=== PATIENT | female | born 1955 | race Caucasian/White ===

== ENCOUNTER 2017-09-06 10:16 | Emergency (ER) | payer BC ==
[2017-09-06 12:13] VITALS: BP 154/81
--- NOTE | 2017-09-06 17:49 | ED ---
Throat Pain/Nasal Congestion - HPI Summary HPI Summary: States she woke today and the swelling in her face is worse. Patient presents to the ED with chief complaint of left maxillary and mandible pain for 4 days. She denies any history of dental infections. She was seen by her primary care on Thursday and was placed on a course of antibiotics. She believes the antibiotics was cefepime, but knows it started with a CEF. Symptoms have not improved and now she states the pain is more localized to the lower jaw. Denies any pain in the neck or into the ear. She describes it as aching, and throbbing. She contracts sinus infections frequently, but states this feels different. She denies any right maxillary or mandible pain. Fillings into the left lower molars visualized. Denies sinus congestion or chest congestion or rhinorrhea. - History of Current Complaint Chief Complaint: EDUpperRespComplaint Time Seen by Provider: 09/06/17 11:23 Hx Obtained From: Patient Onset/Duration: Gradual Onset Severity: Moderate Associated Signs And Symptoms: Positive: Sinus Discomfort. Negative: Dysphagia , Nasal Discharge - Epiglottits Risk Factors Epiglottis Risk Factors: Negative - Allergies/Home Medications Allergies/Adverse Reactions: Allergies Allergy/AdvReac Type Severity Reaction Status Date / Time Acetaminophen [From Percocet] Allergy Abdominal Verified 09/06/17 10:20 Pain Amoxicillin [From Augmentin] Allergy Vomiting Verified 09/06/17 10:20 Clavulanic Acid Allergy Vomiting Verified 09/06/17 10:20 [From Augmentin] Codeine Allergy Abdominal Verified 09/06/17 10:20 Pain Oxycodone [From Percocet] Allergy Abdominal Verified 09/06/17 10:20 Pain Propoxyphene Allergy Rash Verified 09/06/17 10:20 [From Darvocet-N] Tetracycline Allergy Rash Verified 09/06/17 10:20 PMH/Surg Hx/FS Hx/Imm Hx Previously Healthy: Yes - Surgical History Surgery Procedure, Year, and Place: GALL BLADDER SURGERY, SPINAL FUSION - Immunization History Hx Pertussis Vaccination: No Immunizations Up to Date: Yes Infectious Disease History: No Infectious Disease History: Denies: Traveled Outside the [place] in Last 30 Days - Social History Occupation: Employed Full-time Lives: With Family Alcohol Use: Occasionally Hx Substance Use: No Substance Use Type: Reports: None Hx Tobacco Use: No Smoking Status (MU): Never Smoked Tobacco Review of Systems Constitutional: Negative Negative: Fever, Chills, Fatigue, Skin Diaphoresis Positive: Dental Pain, Other - left maxillary sinus pain Cardiovascular: Negative Genitourinary: Negative Positive: no symptoms reported, see HPI Musculoskeletal: Negative Skin: Negative Psychological: Normal All Other Systems Reviewed And Are Negative: Yes Physical Exam Triage Information Reviewed: Yes Vital Signs On Initial Exam: Initial Vitals Temp Pulse Resp BP Pulse Ox 97.6 F 67 16 187/87 97 09/06/17 10:20 09/06/17 10:20 09/06/17 10:20 09/06/17 10:20 09/06/17 10:20 Vital Signs Reviewed: Yes Appearance: Positive: Well-Appearing, Well-Nourished Skin: Positive: Warm, Skin Color Reflects Adequate Perfusion Head/Face: Positive: Normal Head/Face Inspection Eyes: Positive: EOMI, KYLER, Conjunctiva Clear Dental: Positive: Other Neck: Positive: Enlarged Nodes @ - Left lower mandible and maxillary Respiratory/Lung Sounds: Positive: Breath Sounds Present Cardiovascular: Positive: Pulses are Symmetrical in both Upper and Lower Extremities - Left cervical anterior Musculoskeletal: Positive: Normal, Strength/ROM Intact Neurological: Positive: Speech Normal Psychiatric: Positive: Affect/Mood Appropriate AVPU Assessment: Alert Diagnostics - Vital Signs Vital Signs Temp Pulse Resp BP Pulse Ox 09/06/17 12:12 97.6 F 67 16 154/81 98 09/06/17 10:20 97.6 F 67 16 187/87 97 - Laboratory Lab Statement: Any lab studies that have been ordered have been reviewed, and results considered in the medical decision making process. EENT Course/Dx - Course Course Of Treatment: Course of treatment the patient is evaluated for left maxillary and mandible pain. I have considered sinusitis versus dental infection. No loculated or fluctuant fluid in the maxillary sinuses bilaterally. There is no evidence of cellulitis, no erythema or warmth to the left cheek. No swelling is noted. Denies trismus. While there is left maxillary sinus pressure, worsening pain is noted to be in the left lower mandible. No visible abscess or infection is seen. Unknown antibiotic and unsure if this would cover for dental infection. She is given clindamycin 300 mg 4 times daily 7 days. She is to follow-up with her primary care physician this week. She is given orders strict return precautions as this may be an early forming abscess into the maxillary sinus. I do not believe a CT maxillofacial is warranted at this time based on physical exam symptoms that I have mentioned above. She is okay with this plan and discharge and voices no concerns. Denies any fevers, sweats, chills to suggest more systemic infection. Vital signs are stable throughout the course of treatment. - Diagnoses Provider Diagnoses: Mandibular pain Discharge - Discharge Plan Condition: Stable Disposition: HOME Prescriptions: Clindamycin Cap(NF) [Clindamycin Cap 300 mg Cap(NF)] 300 mg PO Q6H #28 cap traMADol TAB* [Ultram*] 50 mg PO Q12H PRN #6 tab MDD 2 PRN Reason: Pain Patient Education Materials: Toothache (ED) Referrals: Mundo Salinas MD [Medical Doctor] - Tameka Teixeira MD [Primary Care Provider] - Additional Instructions: Please take the clindamycin 4 times daily for 7 days for a possible dental infection I have given you a referral to Dr. Salinas, please follow up with him You must call tomorrow morning to make an appointment As discussed, if this becomes any worse you need to return to the ED immediately Signs of worsening infection include redness swelling or worsening pain despite pain medicine If he develops fevers, sweats, chills please return to the ED immediately
== END 2017-09-06 12:15 | disposition home or self-care (01) ==
LOC: ED 10:16
DX: R68.84 Jaw pain (principal)
CPT/HCPCS: 99282

== ENCOUNTER 2019-04-26 23:46 | Emergency (ER) | payer BC ==
--- NOTE | 2019-04-27 03:49 | ED ---
Dizziness - HPI Summary HPI Summary: This pt is a 63 Y/O F presenting to [facility] with a CC of dizziness that has been present since 04/23/19. She states that when she woke up Thursday morning she had a headache that she describes as my head is going to explode. She states that she felt a little light headed and dizzy while she bent down but the symptoms soon stopped. She states that she went to work today ad had another episode. She then states that when she we getting ready for bed she states that the room kept spinning. She states that she is not on any medications for blood. She reported that she had CP that radiates into her hands. She had an earlier cath test a couple months ago that showed no acute abnormalities. She denies any fever and N/V. She also reported that her brother from a hemorrhage. She states she has a Hx of HTN and DM. 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 Negative: Nausea, Vomiting, Fever - Risk Factors CVA Risk Factor: Hypertension - Allergies/Home Medications Allergies/Adverse Reactions: Allergies Allergy/AdvReac Type Severity Reaction Status Date / Time propoxyphene Allergy Rash Verified 04/27/19 03:32 [From Darvocet-N] Tetracyclines Allergy Rash Verified 04/27/19 03:32 amoxicillin [From Augmentin] AdvReac Vomiting Verified 04/27/19 03:32 clavulanic acid AdvReac Vomiting Verified 04/27/19 03:32 [From Augmentin] codeine AdvReac Abdominal Verified 04/27/19 03:32 Pain oxycodone [From Percocet] AdvReac Abdominal Verified 04/27/19 03:32 Pain Home Medications: Home Medications Ajovy 225 mg SUBCUT MONTHLY 04/27/19 [History Confirmed 04/27/19] Imitrex 100 mg PO DAILY PRN 04/27/19 [History Confirmed 04/27/19] Meloxicam 15 mg PO DAILY 04/27/19 [History Confirmed 04/27/19] PMH/Surg Hx/FS Hx/Imm Hx Previously Healthy: Yes Endocrine/Hematology History: Reports: Hx Diabetes - Type 1 Respiratory History: Denies: Hx Asthma, Hx Bronchopulmonary Dysplasia, Hx Chronic Bronchitis, Hx Chronic Obstructive Pulmonary Disease (COPD), Hx Cystic Fibrosis, Hx Lung Cancer , Hx Pleural Effusion, Hx Pneumonia, Hx Pulmonary Edema, Hx Pulmonary Embolism, Hx Seasonal Allergies, Hx Sleep Apnea, Other Respiratory Problems/Disorders - Surgical History Surgery Procedure, Year, and Place: GALL BLADDER SURGERY, SPINAL FUSION Infectious Disease History: No Infectious Disease History: Denies: Traveled Outside the [place] in Last 30 Days - Social History Alcohol Use: Occasionally Hx Substance Use: No Substance Use Type: Reports: None Hx Tobacco Use: No Smoking Status (MU): Never Smoked Tobacco Review of Systems Positive: Chest Pain - radiates into the hand Positive: Abdominal Pain. Negative: Vomiting Positive: Arthralgia, Myalgia, Decreased ROM Positive: Headache - rated 10/10 , Weakness All Other Systems Reviewed And Are Negative: Yes Physical Exam - Summary Physical Exam Summary: Constitutional: Well-developed, Well-nourished, Alert. (-) Distressed Skin: Warm, Dry HENT: Normocephalic; Atraumatic, Eyes: Conjunctiva normal Neck: Musculoskeletal ROM normal neck. (-) JVD, (-) Stridor, (-) Nuchal rigidity , neck tenderness in her posterior aspects. . Cardio: Rhythm regular, rate normal, Heart sounds normal; Intact distal pulses; Radial pulses are 2+ and symmetric. (-) Murmur Pulmonary/Chest wall: Effort normal. (-) Respiratory distress, (-) Wheezes, (-) Rales Abd: Soft, (-) tenderness, (-) Distension, (-) Guarding, (-) Rebound Musculoskeletal: (-) Edema, No midline cervical spine tenderness Lymph: (-) Cervical adenopathy Neuro: Alert, Oriented x3, neck pain in her posterior aspects. . Psych: Mood and affect Normal Triage Information Reviewed: Yes Vital Signs On Initial Exam: Initial Vitals Temp Pulse Resp BP Pulse Ox 98.2 F 68 18 211/107 95 04/26/19 23:48 04/26/19 23:48 04/26/19 23:48 04/26/19 23:48 04/26/19 23:48 Vital Signs Reviewed: Yes Diagnostics - Vital Signs Vital Signs Temp Pulse Resp BP Pulse Ox 04/27/19 03:12 63 19 191/107 98 04/27/19 01:57 97.9 F 61 18 177/93 98 04/26/19 23:48 98.2 F 68 18 211/107 95 - Laboratory Result Diagrams: 04/27/19 04:47 04/27/19 04:47 Lab Statement: Any lab studies that have been ordered have been reviewed, and results considered in the medical decision making process. Dizzy Course/Dx - Course Course Of Treatment: This pt is a 63 Y/O F presenting to [facility] with a CC of dizziness that has been present since 04/23/19. She states that when she woke up Thursday morning she had a headache that she describes as my head is going to explode. She states that she felt a little light headed and dizzy while she bent down but the symptoms soon stopped when she was standing with her back straight. - Diagnoses Provider Diagnoses: HTN (hypertension) Discharge ED - Discharge Plan Referrals: Tameka Teixeira MD [Primary Care Provider] - - Attestation Statements Document Initiated by Scribe: Yes Documenting Scribe: Blue English Provider For Whom Scribe is Documenting (Include Credential): Joel Shin MD Scribe Attestation: Blue Law, scribed for Joel Shin MD on 04/27/19 at 0659.
[2019-04-27] MEDS ORDERED: Metoclopramide IV* 5 MG/ML 2 ML VIAL IV SLOW PU ONE (04:38)
[2019-04-27] MEDS ORDERED: Magnesium Sulfate 2 GM IV* 2 GM/50 ML BAG IVPB ONE (04:38)
[2019-04-27] MEDS ORDERED: Famotidine IV* 10 MG/ML 2 ML (20 mg) IV SLOW PU ONE (04:38)
[2019-04-27] MEDS ORDERED: diPHENhydraMINE IV* 50 MG/ML 1 ml VIAL (BENADRYL) IV ONE (04:38)
[2019-04-27 04:56] LABS: ABS Eosinophils 0.1 10^3/ul (0-0.6); ABS Lymphocytes 1.8 10^3/ul (1.0-4.8); ABS Monocytes 0.6 10^3/ul (0-0.8); ABS Neutrophils 5.3 10^3/ul (1.5-7.7); Hematocrit 42 % (35-47); Hemoglobin 14.8 g/dL (12.0-16.0); Lymphocyte % 23.3 %; Mean Corpuscular HGB Conc 35 g/dL (31-36); Mean Corpuscular Hemoglobin 31 pg (27-31); Mean Corpuscular Volume 88 fL (80-97); Mean Platelet Volume 7.5 fL (7.4-10.4); Platelet Count 270 10^3/uL (150-450); Red Blood Count 4.81 10^6 /uL (3.70-4.87); Red Cell Distribution Width 13 % (10-15); White Blood Count 7.9 10^3/uL (3.5-10.8)
[2019-04-27] MEDS ORDERED: Lactated Ringers 1000 ML Bag* 1,000 ML IV ONE (05:00)
[2019-04-27 05:07] LABS: Activated Partial Thrombo Time 33.1 seconds (26.0-38.0); INR 0.88 (0.82-1.09)
[2019-04-27 05:13] LABS: BUN/Creatinine Ratio 25.8 (8-20); Calcium 9.5 mg/dL (8.6-10.3); EGFR African American 77.3 (>60); EGFR Non-African American 63.9 (>60); Magnesium 2.2 mg/dL (1.9-2.7); Potassium 4.5 mmol/L (3.5-5.0)
[2019-04-27] MEDS ORDERED: Iodixanol* (CONTRAST) 320 MG/ML 100 ML SDV IV ONE (05:20)
[2019-04-27 06:58] LABS: Urine Appearance Clear; Urine Bilirubin Negative (Negative); Urine Blood Negative (Negative); Urine Color Yellow; Urine Glucose Negative (Negative); Urine Ketones Negative (Negative); Urine Nitrite Negative (Negative); Urine Protein Negative (Negative); Urine Specific Gravity 1.005 (1.010-1.030); Urine Urobilinogen Negative (Negative)
--- NOTE | 2019-04-27 07:12 | ED ---
Progress - Progress Note Progress Note: This patient is a sign-out at 0700 on 04/27/19 at shift change from Dr. Joel Shin to Dr. Sukhi Sher pending CTA head/neck and disposition. - Results/Orders Results/Orders: CXR: NO EVIDENCE FOR ACTIVE CARDIOPULMONARY DISEASE. Dr. Sher has reviewed this radiology report. Head CTA: 1. No acute occlusive disease, significant stenosis or aneurysm in the brain. 2. No acute occlusive disease in the neck. Dr. Sher has reviewed this radiology report. Re-Evaluation - Re-Evaluation First Eval Re-Evaluation Time: 08:27 Comment: Discussed results with patient. Patient will be discharged home with dx of migraine headache and elevated BP without hx of HTN. Patient understands and agrees with this plan. Course/Dx - Course Course Of Treatment: This patient is a sign-out at 0700 on 04/27/19 at shift change from Dr. Joel Shin to Dr. Sukhi Sher pending CTA head/neck and disposition. . This patient was signed out by Dr. Shin the previously attending. He recommended for the patient to be discharged home if the CT is negative. CTA as above and is negative for an acute pathology. The blood pressure is in the high level 180/90 however the patient will follow with the primary care physician in the next 2 days since the patient doesnt have any history of hypertension. Since the patient is feeling better, she does not have any headache she does not have any complaints the patient will be discharged home with follow-up with PCP. She was recommended to return to the emergency department if she develops any headaches, chest pain, shortness of breath or any other complaint. She understands and agrees. The patient is hemodynamically stable alert and oriented 3. - Diagnoses Provider Diagnoses: Migraine headache, Blood pressure elevated without history of HTN Discharge ED - Sign-Out/Discharge Documenting (check all that apply): Patient Departure - Discharge, Receiving Sign-Out Receiving patient FROM: Joel Shin Patient Received Moderate/Deep Sedation with Procedure: No - Discharge Plan Condition: Stable Disposition: HOME Patient Education Materials: Migraine Headache (ED), Hypertension (ED) Referrals: Tameka Teixeira MD [Primary Care Provider] - 2 Days Additional Instructions: FOLLOW UP WITH YOUR PRIMARY CARE PROVIDER WITHIN ONE WEEK. RETURN TO THE ED FOR ANY WORSENING OR NEW SYMPTOMS. - Attestation Statements Document Initiated by Scribe: Yes Documenting Scribe: Ramon Tapia Provider For Whom Scribe is Documenting (Include Credential): Sukhi Sher MD Scribe Attestation: I, Ramon Tapia, scribed for Sukhi Sher MD on 04/27/19 at 1340. Status of Scribe Document: Ready
[2019-04-27 08:56] VITALS: BP 153/92
== END 2019-04-27 08:56 | disposition home or self-care (01) ==
LOC: ED 23:46
DX: G43.909 Migraine, unspecified, not intractable, without status migrainosus (principal); R03.0 Elevated blood-pressure reading, without diagnosis of hypertension; E10.9 Type 1 diabetes mellitus without complications; R06.02 Shortness of breath; R42 Dizziness and giddiness
CPT/HCPCS: 36415; 70450; 70496; 70498; 71046; 80048; 81003; 83735; 84484; 85025; 85610; 85730; 93005; 96365; 96366; 96375; 99284; J1200; J2765; J3475

== ENCOUNTER 2019-05-31 10:05 | Observation (INO) | payer MEDICARE, BC ==
[2019-05-31 10:40] LABS: ABS Eosinophils 0.1 10^3/ul (0-0.6); ABS Lymphocytes 1.6 10^3/ul (1.0-4.8); ABS Monocytes 0.4 10^3/ul (0-0.8); ABS Neutrophils 3.6 10^3/ul (1.5-7.7); Eosinophil % 1.2 %; Hematocrit 45 % (35-47); Hemoglobin 15.4 g/dL (12.0-16.0); Lymphocyte % 27.4 %; Mean Corpuscular HGB Conc 34 g/dL (31-36); Mean Corpuscular Hemoglobin 30 pg (27-31); Mean Corpuscular Volume 89 fL (80-97); Mean Platelet Volume 7.8 fL (7.4-10.4); Nucleated Red Blood Cells % 0.1; Platelet Count 262 10^3/uL (150-450); Red Blood Count 5.09 10^6 /uL (3.70-4.87); Red Cell Distribution Width 13 % (10-15); White Blood Count 5.7 10^3/uL (3.5-10.8)
--- NOTE | 2019-05-31 10:53 | ED ---
HPI Chest Pain - HPI Summary HPI Summary: Pt is a 64 y/o F presenting to the ED for a chief complaint of chest pain and near syncope. Pt is arriving from Dr. Bruce office after a cardiac stress test that could not be completed. Pt last had a stress test in November of this year with unremarkable findings. Pt reported chest pain and dizziness in April that has been intermittent so she was referred back to cardiology. Today in the office, she felt chest pain, diaphoresis, nausea, near syncope, and lightheadedness during the cardiac stress test. Pt also reports right-sided intermittent neck pain and occasional tinnitus that quickly resolves after initial onset, recent neg CTA in Apr. Pt denies similar symptoms when she typically receives vaccinations or injections. Pt takes 6 baby aspirin for the neck pain, did not take today. Pt has a PMHx of Takotsubos cardiomyopathy and hypercholesterolemia. Pt states she has narrowing of the cervical spine at C5- C6. Pt has a PSHx of gallbladder, , and spinal fusion. Pt has a FMHx of aneurysm in her brother. - History of Current Complaint Chief Complaint: EDChestPainROMI Time Seen by Provider: 05/31/19 10:09 Hx Obtained From: Patient Onset/Duration: Started Minutes Ago, Atraumatic, Still Present Timing: Constant, Lasting Minutes Initial Severity: Mild Current Severity: Mild Pain Intensity: 3 Pain Scale Used: 0-10 Numeric Chest Pain Location: Diffuse Chest Pain Radiates: No Aggravating Factor(s): Nothing Alleviating Factor(s): Nothing Associated Signs and Symptoms: Positive: Chest Pain, Lightheadedness, Diaphoresis, Nausea, Other: - Positive near syncope - Allergy/Home Medications Allergies/Adverse Reactions: Allergies Allergy/AdvReac Type Severity Reaction Status Date / Time propoxyphene Allergy Rash Verified 05/31/19 10:16 [From Darvocet-N] Tetracyclines Allergy Rash Verified 05/31/19 10:16 amoxicillin [From Augmentin] AdvReac Vomiting Verified 05/31/19 10:16 clavulanic acid AdvReac Vomiting Verified 05/31/19 10:16 [From Augmentin] codeine AdvReac Abdominal Verified 05/31/19 10:16 Pain oxycodone [From Percocet] AdvReac Abdominal Verified 05/31/19 10:16 Pain Home Medications: Home Medications Biotin/Calcium Carbonate [Biotin 800 Mcg Tablet] 800 mcg PO DAILY 05/31/19 [ History Confirmed 05/31/19] Fremanezumab-Vfrm [Ajovy] 225 mg SUBCUT MONTHLY 05/31/19 [History Confirmed ] Krill Oil 500 mg PO DAILY 05/31/19 [History Confirmed 05/31/19] Meloxicam(NF) [Mobic(NF)] 15 mg PO DAILY 05/31/19 [History Confirmed 05/31/19] Multivitamins/Minerals TAB* [Theragran/minerals TAB*] 1 tab PO DAILY 05/31/19 [ History Confirmed 05/31/19] PMH/Surg Hx/FS Hx/Imm Hx Previously Healthy: Yes Endocrine/Hematology History: Reports: Hx Diabetes - Type 1 Cardiovascular History: Reports: Hx Hypercholesterolemia, Other Cardiovascular Problems/Disorders - Takotsubo's cardiomyopathy Respiratory History: Denies: Hx Asthma, Hx Bronchopulmonary Dysplasia, Hx Chronic Bronchitis, Hx Chronic Obstructive Pulmonary Disease (COPD), Hx Cystic Fibrosis, Hx Lung Cancer , Hx Pleural Effusion, Hx Pneumonia, Hx Pulmonary Edema, Hx Pulmonary Embolism, Hx Seasonal Allergies, Hx Sleep Apnea, Other Respiratory Problems/Disorders Sensory History: Denies: Hx Legally Blind, Hx Deafness Opthamlomology History: Denies: Hx Legally Blind EENT History: Denies: Hx Deafness - Surgical History Surgical History: Yes Surgery Procedure, Year, and Place: GALL BLADDER SURGERY, SPINAL FUSION, C- SECTION Infectious Disease History: No Infectious Disease History: Denies: Traveled Outside the [place] in Last 30 Days - Family History Known Family History: Positive: Other - Aneurysm in brother - Social History Occupation: Unemployed Lives: With Family Alcohol Use: Occasionally Hx Substance Use: No Substance Use Type: Reports: None Hx Tobacco Use: No Smoking Status (MU): Never Smoked Tobacco Review of Systems Positive: Skin Diaphoresis Positive: Other - Positive occasional tinnitus that resolves quickly Positive: Chest Pain Positive: Nausea Positive: Myalgia - Right-sided neck pain Neurological: Other - Positive near syncope and lightheadedness All Other Systems Reviewed And Are Negative: Yes Physical Exam - Summary Physical Exam Summary: Constitutional: Well-developed, Well-nourished, Alert. (-) Distressed Skin: Warm, Dry HENT: Normocephalic; Atraumatic Eyes: Conjunctiva normal Neck: Musculoskeletal ROM normal neck. (-) JVD, (-) Stridor, (-) Nuchal rigidity Cardio: Rhythm regular, rate normal, Heart sounds normal; Intact distal pulses; Radial pulses are 2+ and symmetric. (-) Murmur Pulmonary/Chest wall: Effort normal. (-) Respiratory distress, (-) Wheezes, (-) Rales Abd: Soft, (-) tenderness, (-) Distension, (-) Guarding, (-) Rebound Musculoskeletal: (-) Edema Lymph: (-) Cervical adenopathy Neuro: Alert, Oriented x3 Psych: Mood and affect Normal Triage Information Reviewed: Yes Vital Signs On Initial Exam: Initial Vitals Temp Pulse Resp BP Pulse Ox 97.5 F 54 16 198/95 96 05/31/19 10:12 05/31/19 10:12 05/31/19 10:12 05/31/19 10:12 05/31/19 10:12 Vital Signs Reviewed: Yes Procedures - Sedation Patient Received Moderate/Deep Sedation with Procedure: No Diagnostics - Vital Signs Vital Signs Temp Pulse Resp BP Pulse Ox 05/31/19 10:12 97.5 F 54 16 198/95 96 - Laboratory Lab Results: Lab Results 05/31/19 Range/Units 10:25 WBC 5.7 (3.5-10.8) 10^3/uL RBC 5.09 H (3.70-4.87) 10^6 /uL Hgb 15.4 (12.0-16.0) g/dL Hct 45 (35-47) % MCV 89 (80-97) fL MCH 30 (27-31) pg MCHC 34 (31-36) g/dL RDW 13 (10-15) % Plt Count 262 (150-450) 10^3/uL MPV 7.8 (7.4-10.4) fL Neut % (Auto) 63.5 % Lymph % (Auto) 27.4 % [place] % (Auto) 7.0 % Eos % (Auto) 1.2 % Baso % (Auto) 0.9 % Absolute Neuts (auto) 3.6 (1.5-7.7) 10^3/ul Absolute Lymphs (auto) 1.6 (1.0-4.8) 10^3/ul Absolute Monos (auto) 0.4 (0-0.8) 10^3/ul Absolute Eos (auto) 0.1 (0-0.6) 10^3/ul Absolute Basos (auto) 0.0 (0-0.2) 10^3/ul Absolute Nucleated RBC 0.0 10^3/ul Nucleated RBC % 0.1 Result Diagrams: 05/31/19 10:25 05/31/19 10:25 Lab Statement: Any lab studies that have been ordered have been reviewed, and results considered in the medical decision making process. - Radiology Chest X-ray Radiology Interpretation Completed By: Radiologist Summary of Radiographic Findings: Chest X-ray IMPRESSION: NO ACTIVE CARDIOPULMONARY DISEASE. Reviewed by ED physician. - EKG 10:21 Cardiac Rate: Bradycardia - 55 BPM EKG Rhythm: Sinus Bradycardia ST Segment: Normal Ectopy: None Summary of EKG Findings: EKG at 10:21 reveals 55 BPM with sinus bradycardia, no STEMI, no acute changes, nml axis, nml intervals. Reviewed and interpreted by ED physician. Re-Evaluation - Re-Evaluation First Eval Re-Evaluation Time: 11:40 Comment: trop neg, plan for admit for stress. 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 Recent stress test in November, was outpatient stress test when she had onset of nausea, neck pain and lightheadedness while getting blood drawn. Neck pain ddx includes: MSK, vascular (recent neg CTA), bony (hx cervical stenosis), cardiac (check trop, EKG). Well check labs including a troponin here, EKG is sinus bradycardia. Patient hypertensive to 190s otherwise unremarkable vitals. Likely to be admitted for stress in patient. BP elevated to 190's. Took home meds, will monitor. - Diagnoses Provider Diagnoses: Near syncope, Chest pain - Provider Notifications Instructed by Provider To: Admit As Inpatient Discharge ED - Sign-Out/Discharge Documenting (check all that apply): Patient Departure - Admit - Discharge Plan Condition: Stable Disposition: ADMITTED TO [facility] Referrals: Tameka Teixeira MD [Primary Care Provider] - - Billing Disposition and Condition Condition: STABLE Disposition: Admitted to [facility] - Attestation Statements Document Initiated by Scribe: Yes Documenting Scribe: Katherine Mccormick Provider For Whom Fabrizioibe is Documenting (Include Credential): Erin Ronquillo MD Scribe Attestation: I, Katherine Mccormick, scribed for Erin Ronquillo MD on 05/31/19 at 1216. Scribe Documentation Reviewed: Yes Provider Attestation: The documentation as recorded by the Katherine blackwell accurately reflects the service I personally performed and the decisions made by me, Erin Ronquillo MD Status of Scribe Document: Viewed Consult Consult: At 11:38, I spoke with Dr. Ramirez who agrees [place] [facility] [place] a [place] of [place] pain and near syncope.
--- OUTSIDE RECORDS SUMMARY | 2019-05-31 10:53 | XMS REPORT | Continuity of Care Document ---
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 Onset: 2018 other diseases of the circulatory system Social History Type Date Description Comments Sex Unknown ETOH Use Currently consumes 3-4 drinks per week alcohol Tobacco Use Start: Unknown Patient has never smoked Recreational Drug Use Denies Drug Use Smoking Status Reviewed: 05/12/19 Patient has never smoked Exercise Type/Frequency Exercises regularly walks 2-3 times per week Allergies, Adverse Reactions, Alerts Active Allergies Reaction Severity Comments Date Tetracycline 10/08/2018 Codeine 10/08/2018 Percocet 10/08/2018 Vicodin 10/08/2018 Augmentin 10/08/2018 Propoxyphene rash 10/15/2018 Medications Active Medications SIG Qnty Indications Ordering Provider Date Meloxicam 1 by mouth every Unknown 15mg Tablets day Imitrex one tablet at Unknown 100mg Tablets onset of migraine as directed Multi Complete daily Unknown Capsules Magnesium Oxide 1 by mouth every 90tabs Unknown 400mg day Tablets GNP Potassium once daily prn Unknown 99mg Tablets Megared Superior take 1 by mouth Unknown [place]-3 Krill Oil per day Extra Strength 500mg Capsules Biotin 5000 take one Unknown 5mg capsule/tablet Capsules daily by mouth HM Vitamin B-12 Ultra once daily Unknown Strength 5000mcg Tablets Dispers Vitamin C Immune once daily Unknown Health 500mg Chewtabs Ajovy inject once a Unknown 225mg/1.5ML Soln month Prefill Syringe Immunizations Description No Information Available Vital Signs Date Vital Result Comment 05/12/2019 3:49pm Height 63 inches 5'3" Weight 149.25 lb Heart Rate 98 /min BP Systolic Sitting 130 mmHg Ra< reg BP Diastolic Sitting 90 mmHg Ra< reg BP Systolic Standing 128 mmHg Ra. reg BP Diastolic Standing 90 mmHg Ra. reg BMI (Body Mass Index) 26.4 kg/m2 11/26/2018 8:54am Height 63 inches 5'3" Weight 149.25 lb with shoes Heart Rate 72 /min BP Systolic Sitting 126 mmHg Rue, regular cuff BP Diastolic Sitting 80 mmHg Rue, regular cuff BP Systolic Standing 122 mmHg Rue, regular cuff BP Diastolic Standing 84 mmHg Rue, regular cuff Respiratory Rate 16 /min BMI (Body Mass Index) 26.4 kg/m2 Results Description No Information Available Procedures Date Code Description Status 05/12/2019 22207 EKG Tracing & Interpretation Completed 11/23/2018 91541 ECHO Stress Test Incl Perf Contiuous ekg Monitoring W/Phys Completed Superv Medical Devices Description No Information Available Encounters Type Date Location Provider Dx Diagnosis Office Visit 11/26/2018 [facility] Geno Romano, R07.89 Other chest pain 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 11/26/2018 Z82.49 Family history of ischemic heart disease and Geno Romano M.D. other diseases 11/23/2018 R07.9 Chest pain, unspecified Geno Romano M.D. 11/23/2018 R94.31 Abnormal electrocardiogram [ECG] [EKG] Geno Romano M.D. Plan of Treatment 05/12/2019 - Carolina Douglass, NPI10 Essential (primary) hypertensionNew Orders: Ambulatory Blood Pressure Monitor, Ordered: 05/12/19Follow up:after testing with either myself of Dr. Romano.E78.2 Mixed [id number] Chest pain, unspecifiedNew Labs:Troponin-I (TnI), Ordered: 05/12/19New Orders:Stress Test, Exercise Nuclear, Ordered: 05/12/19Recommendations:[place] [facility] [place] today and get labs drawn. Ill call you with results. Functional Status Description No Information Available Mental Status Description No Information Available Referrals Description No Information Available
--- OUTSIDE RECORDS SUMMARY | 2019-05-31 10:53 | XMS REPORT | Continuity of Care Document ---
:1955 External Reference #:[id number] Author Name Kae Shoemaker Care Team Providers Name Role Phone Earl Bhatt NP - Family Care Team Information Job Hand [phone] Problems Active Problems Provider Date Family history of ischemic heart disease and Geno Romano M.D. Onset: 2018 other diseases of the circulatory system Social History Type Date Description Comments Sex Unknown ETOH Use Currently consumes 3-4 drinks per week alcohol Tobacco Use Start: Unknown Patient has never smoked Recreational Drug Use Denies Drug Use Smoking Status Reviewed: 11/26/18 Patient has never smoked Exercise Type/Frequency Exercises [...] 400mg day Tablets GNP Potassium once daily Unknown 99mg Tablets Megared Superior take 1 by mouth Unknown [place]-3 Krill Oil per day Extra Strength 500mg Capsules Biotin 5000 take one Unknown 5mg capsule/tablet Capsules daily by mouth HM Vitamin B-12 Ultra once daily Unknown Strength 5000mcg Tablets Dispers Vitamin C Immune once daily Unknown Health 500mg Chewtabs Ajovy inject once a Unknown 225mg/1.5ML Soln month Prefill Syringe Darifenacin 1 by mouth every Unknown Hydrobromide ER night 7.5mg Tablets ER 24HR Immunizations Description No Information Available Vital Signs Date Vital Result Comment 11/26/2018 8:54am Height 63 inches 5'3" Weight 149.25 lb with shoes Heart Rate 72 /min BP Systolic Sitting 126 mmHg Rue, regular cuff BP Diastolic Sitting 80 mmHg Rue, regular cuff BP Systolic Standing 122 mmHg Rue, regular cuff BP Diastolic Standing 84 mmHg Rue, regular cuff Respiratory Rate 16 /min BMI (Body Mass Index) 26.4 kg/m2 10/15/2018 9:28am Height 63 inches 5'3" Weight 150.00 lb with shoes Heart Rate 72 /min BP Systolic Sitting 146 mmHg ule reg cuff BP Diastolic Sitting 94 mmHg ule reg cuff BP Systolic Standing 144 mmHg ule reg cuff BP Diastolic Standing 92 mmHg ule reg cuff BMI (Body Mass Index) 26.6 kg/m2 Results Description No Information Available Procedures Date Code Description Status 11/23/2018 17624 ECHO Stress Test Incl Perf Contiuous ekg Monitoring W/Phys Completed Superv Medical Devices Description No Information Available Encounters Type Date Location Provider Dx Diagnosis Office Visit 11/26/2018 [facility] Geno Romano, R07.89 Other chest pain 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 11/26/2018 Z82.49 Family history of ischemic heart disease and Geno Romano M.D. other diseases 11/23/2018 R07.9 Chest pain, unspecified Geno Romano M.D. 11/23/2018 R94.31 Abnormal electrocardiogram [ECG] [EKG] Geno Romano M.D. Plan of Treatment 11/26/2018 - Geno Romano M.D.R07.89 Other chest painComments:Your stress test is reassuring and your chest pain sounds non cardiac.Follow up:PRNZ82.49 Family history of ischemic heart disease and other diseasesComments:Risks for coronary disease include:elevated blood pressure. OK to check as discussed, minimize salt, NSAIDs, get regular exercise. Overweight.Elevated cholesterol.Elevated glucose/diabetesSmoking.Inactive lifestyle. Option of checking a CRP and/or Calcium score CT Functional Status Description No Information Available Mental Status Description No Information Available Referrals Description No Information Available
[2019-05-31 11:59] LABS: Albumin 4.5 g/dL (3.2-5.2); Potassium 4.5 mmol/L (3.5-5.0); Total Bilirubin 0.6 mg/dL (0.2-1.0)
[2019-05-31 12:05] LABS: Albumin/Globulin Ratio 1.6 (1-3); BUN/Creatinine Ratio 19.3 (8-20); EGFR Non-African American 64.5 (>60); Globulin 2.9 g/dL (2-4); Total Protein 7.4 g/dL (6.4-8.9)
[2019-05-31] MEDS ORDERED: Aspirin 81 mg CHEW TAB* 81 MG TAB.CHEW PO ONE (12:17)
[2019-05-31] MEDS: Heparin VIAL(*) 5000 UNITS/ML VIAL (FIVE THOUSAND) SUBCUT SCH ×2 (14:07→21:32)
--- NOTE | 2019-05-31 19:54 | HP ---
CC: Dr. Romano; Dr. Tameka Art * HISTORY AND PHYSICAL: DATE OF ADMISSION: 05/31/19 PRIMARY CARE PROVIDER: Dr. Tameka Art. CHIEF COMPLAINT: The patient was sent to the emergency room by cardiology for near syncope. HISTORY OF PRESENT ILLNESS: This is a 64-year-old female. She was scheduled for an outpatient stress test today at [facility] for ongoing workup of her hypertension, which is labile associated with chest pain, jaw pain , and neck pain. She had a stress test scheduled today and she did her resting test of the first part of the exercise nuclear stress test, and when she did have the IV site inserted, she became very diaphoretic, lightheaded, developed neck discomfort, became clammy, and was referred to the emergency room. The patient in the emergency room had blood work. CBC and chemistry were unremarkable. Troponin first set was negative. Blood pressure on arrival was 198/95 and it was repeated in the emergency room an hour later and was 159/90. EKG did not reveal any ischemic changes, but sinus bradycardia. The patient was seen and evaluated by me in the emergency room. History was obtained as above. At the time of evaluation, she is denying any discomfort, no chest pain , no dizziness, no lightheadedness. She states this has been going on for about a year and she has been trying to find a reason of her blood pressure, which is very labile and fluctuates, and that was part of the routine for her hypertension workup as an outpatient. PAST MEDICAL HISTORY: 1. Hypertension, recently diagnosed. 2. Chronic back pain. 3. Stress incontinence. 4. Migraine. 5. C5-C6 radiculopathy. PAST SURGICAL HISTORY: 1. section in 1986. 2. Cholecystectomy in 1989. 3. Right shoulder dislocation repair in 2005. 4. Left shoulder rotator cuff repair in 2006. 5. Lumbar spine surgery, L5-S1 decompression. 6. Breast surgery in 2002. FAMILY HISTORY: Aneurysm in her brother. SOCIAL HISTORY: Does not smoke. She drinks wine. and lives at home. 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 REVIEW OF SYSTEMS: As per HPI. PHYSICAL EXAMINATION GENERAL: She is awake, alert, oriented, pleasant. VITAL SIGNS: Temperature 97.9, pulse 64, respiratory rate 16, satting 96%, blood pressure 140/82. HEENT: Head and Neck: Normocephalic, atraumatic. No acute disease. No lymphadenopathy. LUNGS: Clear to auscultation bilaterally. CARDIOVASCULAR: S1, S2. Bradycardic. No murmur. BREASTS: Exam deferred. ABDOMEN: Positive bowel sounds. Soft, nontender, nondistended. GENITALIA: Exam deferred. EXTREMITIES: No pedal edema. ACTUARIAL ASSOCIATE: There is no motor or focal sensory deficit. SKIN: There is no significant lesion. DIAGNOSTIC STUDIES/LAB DATA: CBC: White count 5, hemoglobin 15, hematocrit 45, platelets 262. Chemistry: Sodium 141, potassium 4.5, BUN 17, creatinine 0.8, bicarb 22, glucose 90. AST 29, ALT 18. Troponin 0. EKG shows sinus bradycardia; rate 55, IN interval 153, QRS 101, QTc 450. Chest x-ray shows no acute infiltrate. IMPRESSION AND PLAN: This is a 64-year-old female with intermittent chest pain and labile hypertension admitted after near syncope after the initiation of her IV site as an outpatient during the stress testing. No loss of consciousness. Symptoms consistent with vasovagal. 1. Near syncope, most likely vasovagal. Nonetheless, we will put her in tele to rule out any underlying cardiac arrhythmia and we will obtain troponin to rule out myocardial infarction. Pending the results, we will probably proceed with stress testing with the exercise part in the morning. At the same time, we will check her plasma catecholamine. We will check cortisol level and TSH. 2. Hypertension. Blood pressure was quite elevated when she came in. We are going to start her on low dose of amlodipine 5 mg daily. 3. DVT prophylaxis. Heparin 5000 q.8 hours. Repeat morning labs including chemistry and troponin. We will check her renal ultrasound Doppler to assess for renal artery stenosis. [id number]/[facility] #: [id number] [facility]
[2019-05-31] MEDS: amLODIPine TAB* 5 MG PO SCH (20:03)
[2019-06-01] MEDS: Heparin VIAL(*) 5000 UNITS/ML VIAL (FIVE THOUSAND) SUBCUT SCH ×2 (05:42→15:03)
[2019-06-01 06:25] LABS: ABS Eosinophils 0.1 10^3/ul (0-0.6); ABS Lymphocytes 1.9 10^3/ul (1.0-4.8); ABS Monocytes 0.5 10^3/ul (0-0.8); ABS Neutrophils 3.7 10^3/ul (1.5-7.7); Eosinophil % 1.8 %; Hematocrit 43 % (35-47); Hemoglobin 14.7 g/dL (12.0-16.0); Lymphocyte % 30.8 %; Mean Corpuscular HGB Conc 34 g/dL (31-36); Mean Corpuscular Hemoglobin 30 pg (27-31); Mean Corpuscular Volume 88 fL (80-97); Mean Platelet Volume 7.9 fL (7.4-10.4); Nucleated Red Blood Cells % 0.1; Platelet Count 272 10^3/uL (150-450); Red Blood Count 4.88 10^6 /uL (3.70-4.87); Red Cell Distribution Width 13 % (10-15); White Blood Count 6.3 10^3/uL (3.5-10.8)
[2019-06-01 06:56] LABS: BUN/Creatinine Ratio 22.7 (8-20); Calcium 9.4 mg/dL (8.6-10.3); EGFR African American 69.7 (>60); EGFR Non-African American 57.6 (>60); HDL Cholesterol 43.8 mg/dL; Potassium 3.9 mmol/L (3.5-5.0)
[2019-06-01 07:06] LABS: TSH (Thyroid Stimulating Horm) 4.84 mcIU/mL (0.34-5.60)
[2019-06-01] MEDS ORDERED: Aspirin EC TAB* 81 MG TAB.EC PO SCH (09:00)
[2019-06-01] MEDS: amLODIPine TAB* 5 MG PO SCH (11:33)
[2019-06-01] MEDS ORDERED: Acetaminophen TAB* 325 MG PO PRN (12:04)
[2019-06-01 16:23] VITALS: BP 112/66
--- NOTE | 2019-06-03 00:42 | DS ---
DISCHARGE SUMMARY: DATE OF ADMISSION: 05/31/19 DATE OF DISCHARGE: 06/01/19 PRIMARY CARE PROVIDER: Dr. Art. ATTENDING PHYSICIAN: Dr. Raymond Ramirez* (dictated by Beena Bains NP) . PRIMARY DIAGNOSES: 1. Hypertension. 2. Concern for renal artery stenosis. SECONDARY DIAGNOSES: 1. Hypertension. 2. Chronic back pain. 3. Stress incontinence. 4. Migraines. 5. C5-C6 radiculopathy. STUDIES COMPLETED WHILE IN THE HOSPITAL: The patient had a nuclear stress test on 06/01/19, was read as low risk stress test only. No evidence of infarct or ischemia. Calculated ejection fraction was 77%. She had no ischemia on the EKG during stress as well. She had a Doppler ultrasound of the RENAL ARTERIES radiologist's impression: Significantly elevated peak systolic velocity at the proximal segment of the right renal artery measuring 321 cm per second with associated borderline elevated renal to aortic peak systolic velocity ratio of 3.2 concerning for a HEMODYNAMIC SIGNIFICANT STENOSIS. Consider MRA or CT angiogram for further assessment. She had a chest x-ray, radiologist's impression: No active cardiopulmonary disease. She had an electrocardiogram which showed sinus bradycardia at a rate of 55, T-wave inversion seen in V1. MEDICATIONS: New medications: 1. Amlodipine 5 mg p.o. daily. 2. Atorvastatin 20 mg p.o. daily. 3. Aspirin 81 mg p.o. daily. Continued home medications: 1. Multivitamin. 2. Krill oil. 3. Ajovy 225 mg subcutaneous monthly for migraines. 4. Meloxicam 15 mg p.o. daily. HISTORY OF PRESENT ILLNESS: Ms. Ramos is a 64-year-old female who was scheduled for an outpatient stress test at [facility] for ongoing workup of her hypertension which was labile, associated with chest pain, jaw pain, and neck pain. She had a stress test scheduled for today and did her resting test of the first part of the exercise nuclear and then when she had an IV inserted, she became diaphoretic, lightheaded, developed neck discomfort, became clammy, and was referred to the emergency room. While in the emergency room, she had routine blood work. She had a CBC and a chemistry which were unremarkable. Troponin first set was negative. Her blood pressure on arrival was 198/95, repeat in the emergency room was 159/90. EKG did not reveal any ischemic changes, but sinus bradycardia. Initially on evaluation on admission, the patient denied any discomfort, no chest pain, no dizziness, no lightheadedness. She does report that she has had high blood pressure for approximately one year which has been labile, fluctuates, and that this was part of her routine workup for hypertension as an outpatient. While in the hospital, the patient was monitored on telemetry. She had no arrhythmias. She underwent a nuclear stress test that was deemed low risk. The patient's hypertension did improve with the initiation of amlodipine 5 mg p.o. daily. She also underwent renal artery Doppler which was concerning for renal artery stenosis and recommended further workup. At this time, the patient has had a negative stress test and she has had no further chest pain. She had a low risk nuclear stress test with no evidence of ischemia. At that time, she is stable for discharge home. REVIEW OF SYSTEMS: The patient denies any fevers or chills. Denies any chest pain or shortness of breath. Denies any nausea, vomiting, diarrhea, or abdominal pain. She denies any weakness. She denies any urinary frequency, urgency, or pain with urination. PHYSICAL EXAM: General: At this time, Ms. Ramos is alert and oriented, resting in her bed. She is in no acute distress. Vital Signs: Blood pressure 112/66, heart rate 67, respirations 16, O2 saturation 96%, temperature was 97.6. HEENT: Head is atraumatic, normocephalic. Eyes: EOMs are intact. Sclera anicteric and not pale. Oral mucosa appeared to be moist. Neck is supple. Lungs are clear to auscultation bilaterally. No wheezes, rales, or rhonchi. Cardiac: S1, S2. Regular rate and rhythm. No murmurs, rubs, or gallops. Abdomen: Soft and nontender. Bowel sounds are present x4. Extremities: She is able to move all 4 extremities. There is no clubbing or cyanosis. Pedal pulses are +2 bilaterally. Neurologic: She is awake, alert, and oriented x3. Speech is clear. Thought process intact. There are no gross focal deficits. Skin is intact. DISCHARGE PLAN: The patient is stable for discharge home at this time. 1. Chest pain. The patient had a low risk nuclear stress test that showed no evidence of ischemia. Exercise EKG again showed no evidence of ischemia. The patient was found to be hypertensive during this hospitalization and was started on amlodipine 5 mg p.o. daily. She should follow up with her primary care provider in regards to her hypertension. She also did have a Doppler of her renal arteries that was concerning for renal artery stenosis and recommended an MRA of the renal arteries or CT angiogram of the renal arteries. This should be completed as an outpatient. 2. CONCERN FOR RENAL ARTERY STENOSIS The patient is to follow up her primary care provider. She will need an outpatient MRA or CT angiogram of the renal arteries to further evaluate for renal artery stenosis as a cause of her hypertension. She should call her physician for a followup appointment in regards to this testing. 3. Hyperlipidemia. The patient did have a cholesterol profile while she was in the hospital which showed cholesterol of 203 with an LDL of 124. She was started on atorvastatin 20 mg p.o. daily. She should follow up with a repeat cholesterol profile in 4 to 6 weeks with her primary care provider. The patient was instructed to return to the emergency room for any further chest pain, shortness of breath, diaphoresis, dizziness, syncope, or any other concerning symptoms. The patient was instructed to follow up with her primary care provider in regards to renal Doppler concerning for renal artery stenosis for further workup and evaluation of her renal arteries as this could be a cause of her hypertension. CONDITION ON DISCHARGE: Stable. DISPOSITION ON DISCHARGE: Home. TIME SPENT: Time spent on this discharge was 45 minutes with greater than half that time was spent at the bedside reviewing discharge instructions and plans with the patient and her . They verbalized understanding. I have discussed this with my attending, Dr. Raymond Ramirez; he is in agreement with my plan. BEENA BAINS, KAMLA [id number]/[facility] #: [id number] JESSICA
== END 2019-06-01 16:30 | disposition home or self-care (01) ==
LOC: ED 10:05 → MEDTELE 12:24
PROVIDERS: ADMIT Internal Medicine; ATTEND Internal Medicine
DX: I10 Essential (primary) hypertension (principal); G89.29 Other chronic pain; M54.9 Dorsalgia, unspecified; N39.3 Stress incontinence (female) (male); G43.909 Migraine, unspecified, not intractable, without status migrainosus; M54.12 Radiculopathy, cervical region; Z79.82 Long term (current) use of aspirin; Z79.899 Other long term (current) drug therapy; R42 Dizziness and giddiness; R07.9 Chest pain, unspecified; E10.9 Type 1 diabetes mellitus without complications; E78.00 Pure hypercholesterolemia, unspecified
CPT/HCPCS: 36415; 71046; 78452; 80048; 80053; 80061; 82384; 82533; 84443; 84484; 85025; 93005; 93017; 93975; 96372; 99285; A9270-GY; A9502; G0378; J1644